=== PATIENT | female | born 1985 | race Caucasian/White ===

== ENCOUNTER 2021-01-03 11:16 | Emergency (ER) | payer MEDICAID ==
[~2021-01-03] VITALS: Ht 170.2 cm; Wt 91.9 kg
[~2021-01-03 11:16] MED LIST: TOPI100T24 PO
[2021-01-03 11:21] VITALS: BP 111/57
== END 2021-01-03 12:39 | disposition home or self-care (01) ==
LOC: ED 12:09
DX: O26.892 Other specified pregnancy related conditions, second trimester (principal); L25.9 Unspecified contact dermatitis, unspecified cause; H57.13 Ocular pain, bilateral; Z3A.14 14 weeks gestation of pregnancy
CPT/HCPCS: 99283